=== PATIENT | male | born 1975 | race African-American/Black ===

== ENCOUNTER 2023-11-27 18:17 | Emergency (ER) | payer OTHER ==
--- OUTSIDE RECORDS SUMMARY | 2023-11-27 18:20 | XMS REPORT | Continuity of Care Document ---
Author Name Unknown Address [address] [facility] [place] [address] [facility] thconnect Address [address] [facility] [place] [address] Care Team Providers Care Banquet Coordinator Name Role Phone HARPAL MUÑOZ Attending Clinician Unavailable LAB90 Attending Clinician Unavailable CONNOR SELLERS Attending Clinician Unava ilable Payers Payer Name Policy Type Policy Number Effective Date Expirati on Date Source [employer] BENEFIT 2 [id number] 2022 00:00:00 Social History Social Habit Start Date Stop Date Quantity Comments Source Sexual orientation Ronen Flowers - External Alcohol intake 2023-01-08 00:00:00 2023-01-08 00:00:00 1.29 /d Emmanuel Flowers - External History of Social function 2023-01-08 00:00:00 2023-01-08 00:00:00 Emmanuel Flowers - External Sex Ass[birth year] At 1975 00:00:00 1975 00[birth year]:00 Emmanuel Flowers - External Smoking Status Start Date Stop Date Source Never smoked tobacco Emmanuel Flowers - External Medications Ordered Medication Name Filled Medication Name Start Date Stop Date Current Medication? Ordering Clinician Indication Dosage Frequency Signature (SIG) Comments Components Source TRIMETHOPRI M-SULFAMETH OXAZOLE (BACTRIM DS) 800-160 MG oral Tablet 2022-02 00:00: 00 01-16 05:59 :00 No [id number] 1{tbl} Take 1 tablet by mouth 2 times daily for 7 days. Emmanuel Flowers - Externa l Vital Signs Vital Name Observation Time Observation Value Comments S ource Diastolic blood pressure 2023-01-08 22:04:00 86 mm[Hg] Emmanuel Fengjuan ld - External Heart rate 2023-01-08 22:04:00 86 /min Josemanuel Flowers - External Body temperature 2023-01-08 22:04:00 36.44 Hermila Emmanuel Flowers - External Respiratory rate 2023-01-08 22:04:00 15 /min Emmanuel maurice - External Body height 2023-01-08 22:04:00 177.8 cm Geovanna Flowers - External Body weight 2023-01-08 22:04:00 118.842 kg Geovanna Flowers - External BMI 2023-01-08 22:04:00 37.59 kg/m2 Geovanna Flowers - External Systolic blood pressure 2023-01-08 22:04:00 126 mm[Hg] Emmanuel Sejuan ld - External Encounters Start Date/Time End Date/Time Encounter Type Admission Type Attending [facility] Care Department Encounter ID Source 2023-01-12 00:00:00 2023-01-12 00:00:00 Outpatient HARPAL MUÑOZ [id number] Emmanuel Flowers 2023-01-08 16:40:00 2023-01-08 16:40:00 Outpatient LAB90 EMMANUEL BENITEZ [id number] Emmanuel Flowers 2023-01-08 16:15:00 2023-01-08 16:15:00 Outpatient CONNOR SELLERS [id number] Emmanuel Flowers
[2023-11-27] MEDS ORDERED: FAMOTIDINE 20 MG/2 ML VIAL IV ONE (19:53)
[2023-11-27] MEDS ORDERED: ONDANSETRON 4 MG/2 ML VIAL ONE (19:53)
[2023-11-27] MEDS ORDERED: NA CHLORIDE 0.9% 1,000 ML ONE (19:54)
[2023-11-27 20:01] LABS: Absolute Lymphocytes (CBC) 0.3 K/uL (0.7-4.9); Absolute Monocytes 0.5 K/uL (0.1-1.3); Basophils % 0.1 % (0-1.3); Eosinophils % 0.3 % (0-4.4); Hematocrit 46.3 % (39.6-49.0); Hemoglobin 15.4 g/dL (13.6-17.9); Lymphocytes % 2.9 % (15.3-44.8); MCH 30.3 pg (27.0-35.0); MCHC 33.3 g/dL (32.0-36.0); MCV 91.2 fL (80-100); Monocytes % 5.9 % (3.3-12.3); Neutrophils % 90.8 % (41.7-73.7); Platelets 220 thou/uL (152-406); RBC Red Blood Cell Count 5.08 M/uL (4.33-5.43); Red Cell Distribution Width 14.2 % (12.1-15.2)
[2023-11-27 20:28] LABS: Albumin 3.9 g/dL (3.4-5.0); Albumin/Globulin Ratio 0.9 (1.1-1.8); Bilirubin Total 0.5 mg/dL (0.2-1.0); Globulin 4.2 g/dL (2.3-3.5); Protein, Total 8.1 g/dL (6.4-8.2)
[2023-11-27 20:30] LABS: SARS-CoV-2 Antigen CONTROL BLUE LINE VIS/BG OK; SARS-CoV-2 Antigen Rapid Res Negative (Negative)
[2023-11-27] MEDS ORDERED: KETOROLAC 30 MG/ML INJ ONE (20:44)
[2023-11-27 21:08] LABS: Blood Morphology Comment NOT SEEN (NOT SEEN); Platelet Estimate ADEQ; White Blood Cell Scan OK (OK)
--- NOTE | 2023-11-27 22:12 | RAD REPORT ---
EXAMINATION: CT ABDOMEN AND PELVIS WITH CONTRAST CLINICAL INDICATION: Male, 48 years old.ABD PAIN TECHNIQUE: CT abdomen and pelvis was performed, after the administration of IV contrast, [facility]. Axial, sagittal and coronal reconstructions were obtained. One or more of the following dose reduction techniques were used: Automated exposure control, adjustment of the mA and/o r kV according to patient size, and/or iterative reconstruction. Unless otherwise specified, incidental findings do not require dedicated imaging follow-up. [id number]. COMPARISON: No prior exam. FINDINGS: LOWER CHEST: The visualized lung bases are clear. LIVER: Normal in size and contour. No focal lesion. GALLBLADDER/BILE DUCT: No biliary ductal dilatation.? PANCREAS: No significant abnormality. SPLEEN: Normal size. No focal lesion. ADRENALS: Normal; no mass. KIDNEYS AND URETERS: Normal size and contour. No hydronephrosis. GASTROINTESTINAL TRACT: Stomach is non-dilated. Small bowel has normal course and caliber. No colonic wall thickening or pericolonic inflammatory changes. Normal appendix. PERITONEUM: No ascites. Fat-containing umbilical hernia. Small fat-containing inguinal hernias. LYMPH NODES: No lymphadenopathy. ABDOMINAL AORTA AND OTHER VESSELS: Normal caliber aorta and IVC. URINARY BLADDER: Normal contour. REPRODUCTIVE ORGANS: No pathologic process MUSCULOSKELETAL: No acute or suspicious osseous abnormality. ADDITIONAL FINDINGS: None. IMPRESSION: No acute or significant abnormalities seen in the abdomen or pelvis. Normal appendix
--- NOTE | 2023-11-27 22:17 | EDPHYS ---
Physician Documentation [facility] Name: Dave Og Age: 48 yrs Sex: Male : 1975 Arrival Date: 11/27/2023 Time: 18:17 Bed 24 Private MD: ED Physician Yobany Bravo HPI: 11/27 00:27 This 48 yrs old Black Male presents to ER via Wheelchair with complaints of Abdominal kb Pain, Vomiting/Diarrhea. 00:27 Patient is a 48-year-old male who presents for left abdominal pain, nausea, vomiting, kb diarrhea that started this morning. Denies fever. No aggravating or alleviating factors. Historical: - Allergies: 11/26 18:38 No Known Allergies; hb - Home Meds: 18:38 None [Active]; hb - PMHx: 18:38 None; hb - PSHx: 18:38 Achilles - Right; Knee - Left; hb - Immunization history:: Adult Immunizations up to date. - Infectious Disease History:: Denies. - Social history:: Smoking status: Patient reports the use of cigarette tobacco products. ROS: 11/27 00:26 Constitutional: As per HPI kb Exam: 00:26 Constitutional: This is a well developed, well nourished patient who is awake, alert, kb and in no acute distress. Head/Face: Normocephalic, atraumatic. ENT: Moist Mucous membranes Cardiovascular: Regular rate Respiratory: Respirations even and unlabored. No increased work of breathing. Talking in full sentences Skin: Warm, dry with normal turgor. Normal color. MS/ Extremity: Pulses equal, no cyanosis. Neurovascular intact. Full, normal range of motion. Neuro: Awake and alert, GCS 15, oriented to person, place, time, and situation. 00:26 Abdomen/GI: Inspection: abdomen appears normal, Bowel sounds: normal, Palpation: soft, in all quadrants, mild abdominal tenderness, in the left upper quadrant and left lower quadrant, Vital Signs: 11/26 18:36 BP 143 / 95; Pulse 91; Resp 18; Temp 98.8(TE); Pulse Ox 100% on R/A; Weight 115.67 kg; hb Height 5 ft. 10 in. ; Pain 5/10; 19:30 BP 129 / 90; Pulse 86; Resp 16; Pulse Ox 97% ; me1 19:30 BP 128 / 83; Pulse 79; Resp 16; Pulse Ox 99% ; me1 20:30 BP 128 / 83; Pulse 79; Resp 16; Pulse Ox 99% ; me1 21:30 BP 127 / 83; Pulse 78; Resp 16; Pulse Ox 99% ; me1 22:07 BP 136 / 85; Pulse 90; Resp 16; Pulse Ox 95% ; me1 22:30 BP 128 / 90; Pulse 96; Resp 17; Temp 98.4; Pulse Ox 98% ; me1 18:36 Body Mass Index 36.59 (115.67 kg, 177.8 cm) hb 18:36 Pain Scale: Adult hb MDM: 18:22 Medical Screening Exam initiated kb 11/27 00:27 Differential diagnosis: Flu, COVID, gastroenteritis, diverticulitis, colitis. Data kb reviewed: vital signs, nurses notes. Counseling: I had a detailed discussion with the patient and/or guardian regarding the historical points, exam findings, and any diagnostic results supporting the discharge/admit diagnosis, lab results, radiology results, the need for outpatient follow up, a family practitioner, to return to the emergency department if symptoms worsen or persist or if there are any questions or concerns that arise at home. ED course: Patient feeling better after treatment and ready to go home.. 11/26 19:21 Order name: CBC with Diff; Complete Time: 21:12 kb 11/26 19:21 Order name: CMP; Complete Time: 20:42 kb 11/26 19:21 Order name: Lipase; Complete Time: 20:42 kb 11/26 19:21 Order name: Flu; Complete Time: 20:42 kb 11/26 19:21 Order name: SARS-COV-2 Antigen Rapid; Complete Time: 20:42 kb 11/26 21:08 Order name: CBC Smear Scan; Complete Time: 21:12 EDMS 11/26 20:27 Order name: CT Abd/Pelvis - IV Contrast Only; Complete Time: 22:17 kb 11/26 19:21 Order name: IV Saline Lock; Complete Time: 19:51 kb 11/26 19:21 Order name: Labs collected and sent; Complete Time: 19:51 kb Administered Medications: 11/26 20:00 Drug: Famotidine IVP 20 mg IVP once; dilute with 10 mL 0.9% NaCl; give over 2 minutes me1 Route: IVP; Site: right antecubital; 20:45 Follow up: Response: No adverse reaction me1 20:00 Drug: Ondansetron IVP 4 mg IVP once; over 2 minutes Route: IVP; Site: right antecubital;me1 20:30 Follow up: Response: No adverse reaction; Nausea is decreased me1 20:41 Follow up: Response: No adverse reaction; Nausea is decreased me1 20:00 Drug: NS 0.9% IV 1000 ml IV at 1 bolus Per protocol; to be given as a bolus over 60 me1 minutes Route: IV; Rate: 1 bolus; Site: right antecubital; 22:17 Follow up: Response: No adverse reaction; IV Status: Completed infusion; IV Intake: me1 1000ml 20:45 Drug: Ketorolac IVP 15 mg IVP once Route: IVP; Site: right antecubital; me1 22:18 Follow up: Response: No adverse reaction; Pain is decreased me1 Disposition Summary: 11/27/23 22:17 Discharge Ordered Notes: Location: Home kb Condition: Stable kb Diagnosis - Influenza due to identified novel influenza A virus - B kb Followup: kb - With: Emergency Department - When: As needed - Reason: Worsening of condition Followup: kb - With: Private Physician - When: 2 - 3 days - Reason: Recheck today's complaints, Continuance of care, Re-evaluation by your physician Discharge Instructions: - Discharge Summary Sheet kb - Influenza, Adult, [id number] kb Forms: - Medication Reconciliation Form kb - Antibiotic Education kb - Prescription Opioid Use kb - Patient Portal Instructions kb - Leadership Thank You Letter kb Prescriptions: - Zofran 4 mg Oral tablet - take 1 tablet ORAL route every 6 hours As needed; 12 tablet; Refills: 0, kb Product Selection Permitted Signatures: Dispatcher [employer] Vibha Juárez FNP-C FNP-Alma Pepper, RN RN Mary Anne Sanchez RN RN me1
--- NOTE | 2023-11-27 22:17 | ER ---
Nurse's Notes [facility] Name: Dave Og Age: 48 yrs Sex: Male : 1975 Arrival Date: 11/27/2023 Time: 18:17 Bed 24 Private MD: Diagnosis: Influenza due to identified novel influenza A virus-B Presentation: 11/26 18:36 Chief complaint: Left sided abdominal pain, body aches, and N/V/D since this morning. hb Coronavirus screen: Client presents with at least one sign or symptom that may indicate coronavirus-19. Provider contacted for isolation considerations. Ebola Screen: No symptoms or risks identified at this time. Initial Sepsis Screen: Does the patient meet any 2 criteria? No. Patient's initial sepsis screen is negative. Does the patient have a suspected source of infection? No. Patient's initial sepsis screen is negative. Risk Assessment: Do you want to hurt yourself or someone else? Patient reports no desire to harm self or others. Onset of symptoms was November 27, 2023. 18:36 Method Of Arrival: Wheelchair 18:36 Acuity: OZZY 3 hb Triage Assessment: 18:39 General: Appears in no apparent distress. ill, Behavior is calm, cooperative. Pain: hb Pain currently is 5 out of 10 on a pain scale. Neuro: Level of Consciousness is awake, alert, obeys commands, Oriented to person, place, time, situation. Cardiovascular: Patient's skin is warm and dry. Respiratory: Respiratory effort is even, unlabored, Respiratory pattern is regular, symmetrical. GI: Reports lower abdominal pain, upper abdominal pain, diarrhea, nausea, vomiting. Historical: - Allergies: 18:38 No Known Allergies; hb - Home Meds: 18:38 None [Active]; hb - PMHx: 18:38 None; hb - PSHx: 18:38 Achilles - Right; Knee - Left; hb - Immunization history:: Adult Immunizations up to date. - Infectious Disease History:: Denies. - Social history:: Smoking status: Patient reports the use of cigarette tobacco products. Screenin:20 [facility] ED Fall Risk Assessment (Adult) History of falling in the last 3 months, me1 including since admission No falls in past 3 months (0 pts) Confusion or Disorientation No (0 pts) Intoxicated or Sedated No (0 pts) Impaired Gait No (0 pts) Mobility Assist Device Used No (0 pt) Altered Elimination No (0 pt) Score/Fall Risk Level 0 - 2 = Low Risk Maintained a safe environment, Provided non-skid footwear, Hourly rounding (assess needs \T\ fall precautionary measures) done. Abuse screen: Denies threats or abuse. Nutritional screening: No deficits noted. Tuberculosis screening: No symptoms or risk factors identified. Assessment: 19:20 General: Appears uncomfortable, ill, well groomed, well developed, well nourished, me1 Behavior is calm, cooperative, appropriate for age, Reports Left sided abdominal pain, body aches, and N/V/D since this morning. 19:20 Pain: Complains of pain in abdomen Pain does not radiate. Pain currently is 4 out of 10 me1 on a pain scale. Quality of pain is described as crampy, Pain began suddenly, Is continuous. Neuro: Level of Consciousness is awake, alert, obeys commands, Oriented to person, place, time, situation, Appropriate for age. Cardiovascular: Patient's skin is warm and dry. Respiratory: Airway is patent Respiratory effort is even, unlabored, Respiratory pattern is regular, symmetrical. GI: Bowel sounds present X 4 quads. Abd is soft X 4 quads Reports diarrhea, nausea, vomiting, since this morning. : No signs and/or symptoms were reported regarding the genitourinary system. EENT: No signs and/or symptoms were reported regarding the EENT system. Derm: Skin is intact, is healthy with good turgor, Skin is pink, warm \T\ dry. Musculoskeletal: No signs and/or symptoms reported regarding the musculoskeletal system. Vital Signs: 18:36 BP 143 / 95; Pulse 91; Resp 18; Temp 98.8(TE); Pulse Ox 100% on R/A; Weight 115.67 kg; hb Height 5 ft. 10 in. ; Pain 5/10; 19:30 BP 129 / 90; Pulse 86; Resp 16; Pulse Ox 97% ; me1 19:30 BP 128 / 83; Pulse 79; Resp 16; Pulse Ox 99% ; me1 20:30 BP 128 / 83; Pulse 79; Resp 16; Pulse Ox 99% ; me1 21:30 BP 127 / 83; Pulse 78; Resp 16; Pulse Ox 99% ; me1 22:07 BP 136 / 85; Pulse 90; Resp 16; Pulse Ox 95% ; me1 22:30 BP 128 / 90; Pulse 96; Resp 17; Temp 98.4; Pulse Ox 98% ; me1 18:36 Body Mass Index 36.59 (115.67 kg, 177.8 cm) hb 18:36 Pain Scale: Adult hb ED Course: 18:19 Patient arrived in ED. mr 18:22 Vibha Blake, APOLINAR [facility]. kb 18:22 Yobany Bravo MD is Attending Physician. kb 18:38 Triage completed. hb 18:38 Arm band placed on. hb 19:20 Patient has correct armband on for positive identification. Bed in low position. Call me1 light in reach. Side rails up X 1. Provided Education on: POC. Verbalized understanding.. Client placed on continuous cardiac and pulse oximetry monitoring. NIBP monitoring applied. Pulse ox on. NIBP on. 19:20 No provider procedures requiring assistance completed. me1 19:51 Mary Anne Sanchez, RN is Primary Nurse. me1 19:51 SARS-COV-2 Antigen Rapid Sent. me1 19:51 Flu Sent. me1 19:51 CBC with Diff Sent. me1 19:51 CMP Sent. me1 19:51 Lipase Sent. me1 19:51 Initial lab(s) drawn, by ne, sent to lab. COVID swab sent to lab. Flu and/or RSV swab me1 sent to lab. Inserted saline lock: 22 gauge in right antecubital area, using aseptic technique. 22:07 CT Abd/Pelvis - IV Contrast Only In Process Unspecified. EDMS 22:37 IV discontinued, intact, bleeding controlled, No redness/swelling at site. Pressure me1 dressing applied. Administered Medications: 20:00 Drug: Famotidine IVP 20 mg IVP once; dilute with 10 mL 0.9% NaCl; give over 2 minutes me1 Route: IVP; Site: right antecubital; 20:45 Follow up: Response: No adverse reaction me1 20:00 Drug: Ondansetron IVP 4 mg IVP once; over 2 minutes Route: IVP; Site: right antecubital;me1 20:30 Follow up: Response: No adverse reaction; Nausea is decreased me1 20:41 Follow up: Response: No adverse reaction; Nausea is decreased me1 20:00 Drug: NS 0.9% IV 1000 ml IV at 1 bolus Per protocol; to be given as a bolus over 60 me1 minutes Route: IV; Rate: 1 bolus; Site: right antecubital; 22:17 Follow up: Response: No adverse reaction; IV Status: Completed infusion; IV Intake: me1 1000ml 20:45 Drug: Ketorolac IVP 15 mg IVP once Route: IVP; Site: right antecubital; me1 22:18 Follow up: Response: No adverse reaction; Pain is decreased me1 Medication: 19:20 VIS not applicable for this client. me1 Intake: 22:17 IV: 1000ml; Total: 1000ml. me1 Outcome: 22:17 Discharge ordered by . deb 22:37 Discharged to home ambulatory, with significant other, me1 22:37 Condition: stable 22:37 Discharge instructions given to patient, significant other, Instructed on discharge instructions, follow up and referral plans. medication usage, Demonstrated understanding of instructions, follow-up care, medications, Prescriptions given X 1, 22:48 Patient left the ED. me1 Signatures: Dispatcher [employer] EDAR Vibha Blake, SIGNALS OFFICER-C SIGNALS OFFICER-Ckb Mary Perales, Reg Reg mr Alma Torre, SABI RN Mary Anne Sanchez RN RN me1 Corrections: (The following items were deleted from the chart) 20:45 18:36 Chief complaint: Left sided abdominal pain, body aches, and N/V/D since this me1 morning. hb 20:47 20:45 General: Appears uncomfortable, ill, well groomed, well developed, well me1 nourished, me1
[2023-11-28 05:15] VITALS: BP 128/90; TEMP 98.4; O2SAT 98
== END 2023-11-27 22:48 | disposition home or self-care (01) ==
LOC: ER 18:17
DX: J10.1 Influenza due to other identified influenza virus with other respiratory manifestations (principal); R10.32 Left lower quadrant pain; Z11.52 Encounter for screening for COVID-19; Z72.0 Tobacco use
CPT/HCPCS: 96361; 85025; 36415; 83690; 80053; 87804 ×2; 74177; 96375; 96374; 99284; 87811; Q9967; J2405; J7030